=== PATIENT | female | born 1960 | race Caucasian/White ===

== ENCOUNTER 2024-04-16 16:56 | Inpatient (IN) | payer MEDICAID ==
[~2024-04-16] VITALS: Ht 157.5 cm; Wt 60.8 kg
[2024-04-16] MEDS ORDERED: ACETAMINOPHEN 325MG TABLET PO ONE (18:00)
[2024-04-16] MEDS ORDERED: ONDANSETRON HCL 4MG/2ML INJ IV STA (18:12)
[2024-04-16] MEDS ORDERED: KETOROLAC 30MG/ML VIAL IV STA (18:12)
[2024-04-16 18:27] LABS: BASOPHILS % 0.1 % (0.0-2.0); HEMATOCRIT. 33.1 % (36.0-48.0); HEMOGLOBIN. 10.9 g/dL (12.0-16.0); LYMPHOCYTES % 8.3 % (20.0-50.0); MEAN CORPUSCULAR HEMOGLOBIN 30.5 pg (28.0-32.0); MEAN CORPUSCULAR VOLUME 92.5 fL (81.0-99.0); MEAN PLATELET VOLUME 8.7 fl (7.4-10.4); MONOCYTES % 2.5 % (2.0-8.0); NEUTROPHILS % 89.1 % (40.0-76.0); PLATELET 219 x1000/uL (130-400); RED BLOOD CELL COUNT 3.58 mill/uL (4.2-5.4); RED CELL DISTRIBUTION WIDTH 13.4 % (11.6-14.6); WHITE BLOOD COUNT 17.7 x1000/uL (4.5-11.0)
[2024-04-16 18:33] LABS: CHLORIDE 97 mEq/L (98-107); POTASSIUM 3.7 mEq/L (3.5-5.1); SODIUM 129 mEq/L (136-145)
[2024-04-16 18:34] LABS: CALCIUM 9.5 mg/dL (8.7-10.4); CARBON DIOXIDE 23 mEq/L (21-32)
[2024-04-16 18:38] LABS: CREATININE 1.1 mg/dL (0.6-1.0)
[2024-04-16 18:39] LABS: GLUCOSE 205 mg/dL (70-105); UREA NITROGEN BLOOD 19 mg/dL (9-23)
[2024-04-16 18:41] LABS: ALANINE AMINOTRANSFERASE 44 IU/L (10-49); ALBUMIN 4.4 g/dL (3.2-4.8); ASPARTATE AMINOTRANSFERASE 35 IU/L (<34); BILIRUBIN TOTAL 0.8 mg/dL (0.1-1.0); PROTEIN TOTAL 7.7 g/dL (6.0-8.3)
[2024-04-16 18:54] LABS: LACTIC ACID 3.7 mmol/L (0.4-2.0)
[2024-04-16 19:44] LABS: TROPONIN I HIGH SENSITIVITY 33 ng/L (3.0-34)
[2024-04-16] MEDS: SODIUM CHLORIDE 0.9% 1000ML BAG (SEPSIS BOLUS) IV ONE (20:04)
[2024-04-16] MEDS: CEFTRIAXONE 1GM/50ML 50 ML IV ONE (20:18)
[2024-04-16] MEDS: KETOROLAC 30MG/ML VIAL IV NR (20:31)
[2024-04-16] MEDS: ACETAMINOPHEN 325MG TABLET PO NR (20:32)
[2024-04-16] MEDS: ONDANSETRON HCL 4MG/2ML INJ IV NR (20:32)
[2024-04-17] MEDS ORDERED: DIPHENHYDRAMINE 50MG/ML VIAL IV PRN (09:45)
[2024-04-17] MEDS ORDERED: IPRATROPIUM/ALBUTEROL 0.5-3(2.5)MG/3ML NEB HHN PRN (09:45)
[2024-04-17] MEDS ORDERED: DEXTROSE 50% WATER 50ML SYRINGE IV PRN (09:45)
[2024-04-17] MEDS ORDERED: ONDANSETRON HCL 4MG/2ML INJ IV PRN (09:45)
[2024-04-17] MEDS: BLOOD SUGAR DIAGNOSTIC STRIP TEST SCH (11:53)
[2024-04-17] MEDS: INSULIN LISPRO 100 UNITS/ML SUBCUT SCH (12:15)
[2024-04-17 16:00] VITALS: BP 147/60; PULSE 100; RESP 18; TEMP 36.50292; O2SAT 98
[2024-04-17] MEDS ORDERED: PIPERACILLIN/TAZO 3.375G/50ML 50 ML IV SCH (18:00)
[2024-04-17 20:00] VITALS: BP_SYST 102; BP_SYST 138; BP_DIAS 64; BP_DIAS 72; PULSE 100; PULSE 101; RESP 19; TEMP 36.61404; TEMP 40.0032; O2SAT 95; O2SAT 97
[2024-04-17] MEDS ORDERED: CEFTRIAXONE 1GM/50ML 50 ML IV SCH ×2 (20:00)
[2024-04-17] MEDS: PIPERACILLIN/TAZO 3.375G/50ML 50 ML IV SCH (21:38)
[2024-04-17] MEDS: ACETAMINOPHEN 325MG TABLET PO PRN (21:42)
[2024-04-18 04:00] VITALS: BP 127/29; PULSE 95; RESP 20; TEMP 36.6696; O2SAT 96
[2024-04-18 06:45] LABS: HEMATOCRIT. 29.7 % (36.0-48.0); HEMOGLOBIN. 10.2 g/dL (12.0-16.0); MEAN CORPUSCULAR HEMOGLOBIN 31.2 pg (28.0-32.0); MEAN CORPUSCULAR HGB CONC 34.4 g/dL (31.0-37.0); MEAN CORPUSCULAR VOLUME 90.7 fL (81.0-99.0); MEAN PLATELET VOLUME 9.6 fl (7.4-10.4); PLATELET 174 x1000/uL (130-400); RED BLOOD CELL COUNT 3.27 mill/uL (4.2-5.4); RED CELL DISTRIBUTION WIDTH 13.7 % (11.6-14.6); WHITE BLOOD COUNT 15.5 x1000/uL (4.5-11.0)
[2024-04-18 06:50] LABS: POTASSIUM 3.2 mEq/L (3.5-5.1)
[2024-04-18 06:52] LABS: CALCIUM 8.7 mg/dL (8.7-10.4)
[2024-04-18 07:26] LABS: DIFFERENTIAL COMMENT 1
[2024-04-18 08:00] VITALS: BP 121/68; PULSE 72; RESP 18; TEMP 36.61404; O2SAT 99
[2024-04-18] MEDS: HYDROCODONE/ACETAMINOPHEN 5/325MG TABLET PO PRN (10:10)
[2024-04-18 12:00] VITALS: BP 111/64; PULSE 78; RESP 18; TEMP 36.55848; O2SAT 97
[2024-04-18 13:21] LABS: CLARITY URINE CLEAR (CLEAR); COLOR URINE YELLOW (YELLOW); GLUCOSE URINE NEGATIVE (NEGATIVE); KETONES URINE TRACE (NEGATIVE); LEUKOCYTE ESTERASE URINE 1+ (NEGATIVE); NITRITE URINE NEGATIVE (NEGATIVE); OCCULT BLOOD URINE NEGATIVE (NEGATIVE); PROTEIN URINE 2+ (NEGATIVE); SPECIFIC GRAVITY URINE 1.016 (1.005-1.030); UROBILINOGEN URINE 0.2 E.U./dL (0.2-1.0)
[2024-04-18] MEDS: POTASSIUM CHLORIDE 20MEQ TABLET SR PO NR (14:01)
[2024-04-18 15:03] LABS: SQUAMOUS EPITHELIAL CELL URINE 1+ /lpf (RARE/1+)
[2024-04-18 15:04] LABS: BACTERIA URINE TRACE; RBC URINE 0-2 /hpf (0-2)
[2024-04-18 15:05] LABS: WBC URINE 15-25 /hpf (0-2)
[2024-04-18 15:23] LABS: PLATELET ESTIMATE NORMAL
[2024-04-18 16:00] VITALS: BP 131/60; PULSE 74; RESP 18; TEMP 36.44736; O2SAT 99
[2024-04-18 20:00] VITALS: BP 127/65; PULSE 86; RESP 19; TEMP 36.89184; O2SAT 100
[2024-04-19] VITALS: BP 130/67; PULSE 85; RESP 19; TEMP 36.78072; O2SAT 100
[2024-04-19 04:00] VITALS: BP 132/52; PULSE 89; RESP 19; TEMP 37.16964; O2SAT 99
[2024-04-19 06:23] LABS: POTASSIUM 3.5 mEq/L (3.5-5.1)
[2024-04-19 06:24] LABS: CALCIUM 7.9 mg/dL (8.7-10.4)
[2024-04-19 06:44] LABS: BASOPHILS % 0.1 % (0.0-2.0); HEMATOCRIT. 27.3 % (36.0-48.0); HEMOGLOBIN. 9.1 g/dL (12.0-16.0); LYMPHOCYTES % 9.3 % (20.0-50.0); MEAN CORPUSCULAR HEMOGLOBIN 30.6 pg (28.0-32.0); MEAN CORPUSCULAR HGB CONC 33.3 g/dL (31.0-37.0); MEAN CORPUSCULAR VOLUME 91.9 fL (81.0-99.0); MEAN PLATELET VOLUME 9.9 fl (7.4-10.4); MONOCYTES % 7.1 % (2.0-8.0); NEUTROPHILS % 82.5 % (40.0-76.0); PLATELET 169 x1000/uL (130-400); RED BLOOD CELL COUNT 2.96 mill/uL (4.2-5.4); RED CELL DISTRIBUTION WIDTH 13.8 % (11.6-14.6); WHITE BLOOD COUNT 13.8 x1000/uL (4.5-11.0)
[2024-04-19 16:00] VITALS: BP 146/70; PULSE 88; RESP 18; TEMP 37.00296; O2SAT 98
[2024-04-19] MEDS ORDERED: NALOXONE HCL 0.4MG/ML VIAL IV PRN (16:45)
[2024-04-19] MEDS: CEFTRIAXONE 2GM/50ML 50 ML IV SCH (18:08)
[2024-04-19 20:00] VITALS: BP 134/58; PULSE 84; RESP 18; TEMP 37.16964; O2SAT 96
[2024-04-20] VITALS: BP 129/65; PULSE 83; RESP 19; TEMP 36.6696; O2SAT 98
[2024-04-20 04:00] VITALS: BP 139/86; PULSE 83; RESP 17; TEMP 37.28076; O2SAT 99
[2024-04-20 07:43] LABS: BASOPHILS % 0.2 % (0.0-2.0); EOSINOPHILS % 0.9 % (0.0-5.0); HEMATOCRIT. 27.5 % (36.0-48.0); HEMOGLOBIN. 9.1 g/dL (12.0-16.0); LYMPHOCYTES % 9.2 % (20.0-50.0); MEAN CORPUSCULAR HEMOGLOBIN 30.3 pg (28.0-32.0); MEAN CORPUSCULAR HGB CONC 32.9 g/dL (31.0-37.0); MEAN CORPUSCULAR VOLUME 92.2 fL (81.0-99.0); MEAN PLATELET VOLUME 9.6 fl (7.4-10.4); MONOCYTES % 7.7 % (2.0-8.0); PLATELET 224 x1000/uL (130-400); RED BLOOD CELL COUNT 2.99 mill/uL (4.2-5.4); WHITE BLOOD COUNT 13.4 x1000/uL (4.5-11.0)
[2024-04-20 07:58] LABS: CHLORIDE 103 mEq/L (98-107); POTASSIUM 3.5 mEq/L (3.5-5.1); SODIUM 133 mEq/L (136-145)
[2024-04-20 07:59] LABS: CARBON DIOXIDE 23 mEq/L (21-32)
[2024-04-20 08:00] VITALS: BP 151/60; PULSE 77; RESP 18; TEMP 36.61404; O2SAT 100
[2024-04-20 08:00] LABS: CALCIUM 8.3 mg/dL (8.7-10.4)
[2024-04-20 08:05] LABS: CREATININE 0.7 mg/dL (0.6-1.0); GLUCOSE 144 mg/dL (70-105); UREA NITROGEN BLOOD 18 mg/dL (9-23)
[2024-04-20 13:00] VITALS: BP 116/58; PULSE 73; RESP 18; TEMP 36.55848; O2SAT 100
[2024-04-20] MEDS ORDERED: LEVO750T68 MT (13:46)
[2024-04-20 14:11] VITALS: BP 114/63; PULSE 78; TEMP 97.8; O2SAT 100
== END 2024-04-20 15:10 | disposition home or self-care (01) | DRG 720 ==
LOC: ER 16:56 → MICUSO 20:46 → 5WST 04-17 10:00 → 7EST 04-17 15:43 → 6WST 04-19 12:41
PROVIDERS: ADMIT Internal Medicine; ATTEND Internal Medicine
DX: A41.51 Sepsis due to Escherichia coli [E. coli] (principal); E87.20 Acidosis, unspecified; D64.9 Anemia, unspecified; E11.65 Type 2 diabetes mellitus with hyperglycemia; N12 Tubulo-interstitial nephritis, not specified as acute or chronic; I10 Essential (primary) hypertension
CPT/HCPCS: 36415; 71045; 74176; 80048; 80053; 81003; 82962; 83036; 83605; 84145; 84484; 85025; 87077; 87186; 93005; 93970; 99291; J0696; J1815; J1885; J2405; J2543; J7030

== ENCOUNTER 2025-06-21 03:17 | Inpatient (IN) | payer MEDICAID ==
[~2025-06-21] VITALS: Ht 142.2 cm; Wt 78.5 kg
[~2025-06-21 03:17] MED LIST: LEVO750T68 MT
[2025-06-21 03:23] VITALS: O2SAT 98
[2025-06-21 03:48] LABS: HEMATOCRIT. 31.3 % (36.0-48.0); HEMOGLOBIN. 10.6 g/dL (12.0-16.0); RED BLOOD CELL COUNT 3.54 mill/uL (4.2-5.4); RED CELL DISTRIBUTION WIDTH 13.5 % (11.6-14.6)
[2025-06-21 03:49] LABS: BASOPHILS % 0.3 % (0.0-2.0); EOSINOPHILS % 1.5 % (0.0-5.0); LYMPHOCYTES % 16.7 % (20.0-50.0); MEAN PLATELET VOLUME 7.9 fl (7.4-10.4); MONOCYTES % 9.1 % (2.0-8.0); NEUTROPHILS % 72.4 % (40.0-76.0); PLATELET 361 x1000/uL (130-400)
[2025-06-21 04:03] LABS: CREATININE 0.9 mg/dL (0.6-1.0); UREA NITROGEN BLOOD 20 mg/dL (9-23)
[2025-06-21 04:04] LABS: TROPONIN I HIGH SENSITIVITY 4 ng/L (3.0-34)
[2025-06-21 04:06] LABS: ASPARTATE AMINOTRANSFERASE 19 IU/L (<34); BILIRUBIN DIRECT 0.2 mg/dL (<=3.0); BILIRUBIN TOTAL 0.8 mg/dL (0.1-1.0); PROTEIN TOTAL 8.0 g/dL (6.0-8.3)
[2025-06-21] MEDS: MORPHINE SULFATE 4 MG/ML INJ (FOR IV/IM USE) IV ONE (04:09)
[2025-06-21] MEDS: CEFTRIAXONE 1GM/50ML 50 ML IV ONE (04:44)
[2025-06-21] MEDS: SODIUM CHLORIDE 0.9% (SEPSIS BOLUS) IV ONE (04:45)
[2025-06-21 05:02] LABS: CLARITY URINE CLOUDY (CLEAR); COLOR URINE YELLOW (YELLOW); GLUCOSE URINE NEGATIVE (NEGATIVE); KETONES URINE NEGATIVE (NEGATIVE); LEUKOCYTE ESTERASE URINE TRACE (NEGATIVE); NITRITE URINE NEGATIVE (NEGATIVE); OCCULT BLOOD URINE NEGATIVE (NEGATIVE); PH URINE 6.5 (4.5-8.0); PROTEIN URINE NEGATIVE (NEGATIVE); SPECIFIC GRAVITY URINE 1.005 (1.005-1.030); UROBILINOGEN URINE 0.2 E.U./dL (0.2-1.0)
[2025-06-21 05:13] LABS: BACTERIA URINE NONE SEEN; RBC URINE NONE SEEN /hpf (0-2); SQUAMOUS EPITHELIAL CELL URINE FEW /lpf (RARE/1+)
[2025-06-21] MEDS: KETOROLAC 15MG/ML VIAL IV ONE (05:30)
[2025-06-21] MEDS: VANCOMYCIN 1.5GM/250ML IV NR (06:04)
[2025-06-21 08:00] VITALS: BP 139/65; PULSE 71; RESP 18; TEMP 36.2; O2SAT 99
[2025-06-21] MEDS: SODIUM CHLORIDE 0.9% 1,000 ML IV SCH (08:30)
[2025-06-21] MEDS ORDERED: CLONIDINE 0.1MG TABLET PO PRN (08:30)
[2025-06-21] MEDS ORDERED: MAGNESIUM/ALUMINUM HYDROXIDE/SIMETHICONE 30ML UDC PO PRN (08:30)
[2025-06-21] MEDS ORDERED: HYDROCODONE/ACETAMINOPHEN 5/325MG TABLET PO PRN (08:30)
[2025-06-21] MEDS ORDERED: MORPHINE SULFATE 2 MG/ML INJ (NOT FOR IM USE) IV PRN (08:30)
[2025-06-21] MEDS ORDERED: ONDANSETRON HCL 4MG/2ML INJ IV PRN (08:30)
[2025-06-21] MEDS ORDERED: NALOXONE HCL 0.4MG/ML VIAL IV PRN ×2 (09:15)
[2025-06-21] MEDS: PANTOPRAZOLE SODIUM 40 MG/VIAL IV SCH (11:29)
[2025-06-21] MEDS: ENOXAPARIN 40MG/0.4ML SYR SUBCUT SCH (11:30)
[2025-06-21] MEDS: CEFTRIAXONE 1GM/50ML 50 ML IV SCH (11:30)
[2025-06-21 12:00] VITALS: BP 134/61; PULSE 70; RESP 18; TEMP 36.3; O2SAT 99
[2025-06-21 13:03] LABS: *AMPHETAMINES SCREEN URINE NEGATIVE (NEGATIVE); *BARBITURATES SCREEN URINE NEGATIVE (NEGATIVE); *BENZODIAZEPINES SCREEN URINE NEGATIVE (NEGATIVE); *COCAINE SCREEN URINE NEGATIVE (NEGATIVE); CANNABINOID URINE SCREEN NEGATIVE (NEGATIVE); METHADONE URINE SCREEN NEGATIVE (NEGATIVE); OPIATES URINE SCREEN NEGATIVE (NEGATIVE); PHENCYCLIDINE URINE SCREEN NEGATIVE (NEGATIVE)
[2025-06-21 13:04] LABS: ECSTASY MDMA SCREEN URINE NEGATIVE (NEGATIVE)
[2025-06-21] MEDS ORDERED: MORPHINE SULFATE 10 MG/ML INJ (NOT FOR IM USE) IV PRN (15:50)
[2025-06-21] MEDS: AZITHROMYCIN 500MG/250ML 250 ML IV SCH (15:50)
[2025-06-21 16:00] VITALS: BP 153/76; PULSE 91; RESP 18; TEMP 36.6; O2SAT 98
[2025-06-21 20:00] VITALS: BP_SYST 124; BP_SYST 139; BP_DIAS 61; BP_DIAS 75; PULSE 100; PULSE 64; RESP 18; TEMP 36.2; TEMP 37.1; O2SAT 100; O2SAT 95
[2025-06-21] MEDS ORDERED: ZOLPIDEM TARTRATE 5MG TABLET PO PRN (21:00)
[2025-06-22] VITALS: BP 119/56; PULSE 18; RESP 18; TEMP 36.8; O2SAT 100
[2025-06-22 04:00] VITALS: BP 138/67; PULSE 90; RESP 18; TEMP 37.1; O2SAT 90
[2025-06-22] MEDS: ACETAMINOPHEN 325MG TABLET PO PRN (04:31)
[2025-06-22] MEDS ORDERED: ASPI-1497 PO (04:47)
[2025-06-22] MEDS ORDERED: FERR325T6 MT (04:47)
[2025-06-22] MEDS ORDERED: ATOR-2 PO (04:47)
[2025-06-22] MEDS ORDERED: METF-415 PO (04:47)
[2025-06-22] MEDS ORDERED: LOSA1TAB37 PO (04:47)
[2025-06-22] MEDS ORDERED: HYDR25TA PO (04:47)
[2025-06-22] MEDS ORDERED: AMLO10TA80 PO (04:47)
[2025-06-22] MEDS ORDERED: CALC-889 PO (04:47)
[2025-06-22 04:48] VITALS: BP 141/55; PULSE 65; RESP 16; TEMP 36.3068
[2025-06-22] MEDS ORDERED: *PATIENT'S OWN MEDICATION STORAGE XX SCH (07:15)
[2025-06-22 08:00] VITALS: BP 127/55; PULSE 75; RESP 19; TEMP 36.6; O2SAT 98
[2025-06-22 08:02] LABS: BASOPHILS % 0.4 % (0.0-2.0); EOSINOPHILS % 1.5 % (0.0-5.0); HEMATOCRIT. 29.1 % (36.0-48.0); HEMOGLOBIN. 9.6 g/dL (12.0-16.0); LYMPHOCYTES % 21.1 % (20.0-50.0); MEAN PLATELET VOLUME 8.3 fl (7.4-10.4); MONOCYTES % 9.7 % (2.0-8.0); NEUTROPHILS % 67.3 % (40.0-76.0); PLATELET 321 x1000/uL (130-400); RED BLOOD CELL COUNT 3.19 mill/uL (4.2-5.4); RED CELL DISTRIBUTION WIDTH 13.5 % (11.6-14.6)
[2025-06-22 08:55] LABS: CREATININE 0.6 mg/dL (0.6-1.0); UREA NITROGEN BLOOD 10 mg/dL (9-23)
[2025-06-22] MEDS ORDERED: PROT40 MT (09:39)
[2025-06-22] MEDS ORDERED: LEVO750T68 MT (09:39)
[2025-06-22 10:15] VITALS: BP 127/55; PULSE 75; RESP 19; TEMP 97.9
== END 2025-06-22 12:05 | disposition home or self-care (01) | DRG 241 ==
LOC: ER 03:17 → 6EST 05:36 → EDBEDREQ 06:06 → EDBEDREQTM 06:06 → EDBEDREQSVC 06:06 → ENRESERV 06:28
PROVIDERS: ADMIT Internal Medicine; ATTEND Internal Medicine
DX: K29.70 Gastritis, unspecified, without bleeding (principal); J15.69 Pneumonia due to other Gram-negative bacteria; J15.9 Unspecified bacterial pneumonia; E11.9 Type 2 diabetes mellitus without complications; D17.79 Benign lipomatous neoplasm of other sites; A49.8 Other bacterial infections of unspecified site; R65.10 Systemic inflammatory response syndrome (SIRS) of non-infectious origin without acute organ dysfunction; N39.0 Urinary tract infection, site not specified; I10 Essential (primary) hypertension; J98.11 Atelectasis; Z79.899 Other long term (current) drug therapy
CPT/HCPCS: 36415; 71045; 74176; 76705; 80048; 80076; 80305; 81003; 83605; 84145; 84443; 84484; 85025; 93005; 93970; 99285; J0456; J0696; J1650; J1885; J2270; J2470; J3373; J7030